=== PATIENT | female | born 1995 | race Caucasian/White ===

== ENCOUNTER 2021-11-24 07:05 | Day surgery (SDC) | payer MEDICAID ==
[~2021-11-24] VITALS: Ht 157.5 cm; Wt 77.1 kg
[2021-11-24 07:33] LABS: HCG,QUAL RESULT NEGATIVE (NEGATIVE)
[2021-11-24] MEDS ORDERED: MIDAZOLAM HCL 5 MG/5 ML VIAL ONE (09:00)
[2021-11-24] MEDS ORDERED: MEPERIDINE 100 MG INJ. 100 MG/ML VIAL ONE (09:00)
[2021-11-24] MEDS ORDERED: BENZOCAINE 20% 0.5mL UD SPRAY MM ONE (09:00)
[2021-11-24 09:20] VITALS: BP_SYST 100
== END 2021-11-24 10:15 | disposition home or self-care (01) ==
LOC: SDS 07:05 → SMU 07:06 → SDS 10:15
PROVIDERS: ATTEND Internal Medicine
DX: R10.9 Unspecified abdominal pain (principal); K29.50 Unspecified chronic gastritis without bleeding; K29.80 Duodenitis without bleeding; K58.9 Irritable bowel syndrome, unspecified; Z20.822 Contact with and (suspected) exposure to COVID-19
CPT/HCPCS: 87426; 36415 ×2; 43239; 87081; 84703; 88305; 88312; 88313; 99152; G0378; J2250; J2175